=== PATIENT | male | born 1965 | race African-American/Black ===

== ENCOUNTER 2019-04-18 11:32 | Inpatient (IN) | payer MEDICARE, MEDICAID ==
[~2019-04-18] VITALS: Ht 180.3 cm; Wt 119.3 kg
[2019-04-18 12:18] LABS: BASOPHILS % 0.7 % (0.0-2.0); EOSINOPHILS % 3.6 % (0.0-5.0); HEMATOCRIT. 39.4 % (42.0-52.0); HEMOGLOBIN. 13.5 g/dL (14.0-18.0); LYMPHOCYTES % 18.7 % (20.0-50.0); MEAN CORPUSCULAR HEMOGLOBIN 30.1 pg (28.0-32.0); MEAN PLATELET VOLUME 7.7 fl (7.4-10.4); MONOCYTES % 6.9 % (2.0-8.0); NEUTROPHILS % 70.1 % (40.0-76.0); PLATELET 309 x1000/uL (130-400); RED BLOOD CELL COUNT 4.47 mill/uL (4.7-6.1); RED CELL DISTRIBUTION WIDTH 16.2 % (11.6-14.6)
[2019-04-18 12:23] LABS: CHLORIDE 109 mEq/L (98-107)
[2019-04-18] MEDS ORDERED: NITROGLYCERIN 0.4MG TABLET SL SL PRN (12:45)
[2019-04-18] MEDS ORDERED: ASPIRIN 81MG TABLET PO ONE (12:45)
[2019-04-18] MEDS ORDERED: ENOXAPARIN 100MG/ML SYR SUBCUT ONE (12:45)
[2019-04-18] MEDS ORDERED: MORPHINE SULFATE 10 MG/ML CPJ IM ONE (14:30)
[2019-04-18 16:48] VITALS: BP 148/99
[2019-04-18 17:10] VITALS: BP 148/99
[2019-04-18] MEDS ORDERED: CLON0.1T PO (17:18)
[2019-04-18] MEDS ORDERED: ATOR80TA PO (17:18)
[2019-04-18] MEDS ORDERED: BUPR300T52 PO (17:18)
[2019-04-18] MEDS ORDERED: AMLO5TAB4 PO (17:18)
[2019-04-18] MEDS ORDERED: PROT40 PO (17:18)
[2019-04-18 18:04] VITALS: BP 183/117
[2019-04-18] MEDS ORDERED: ACETAMINOPHEN 325MG TABLET PO PRN (18:30)
[2019-04-18] MEDS ORDERED: MORPHINE SULFATE 2 MG/ML CPJ (NOT FOR IM USE) IV PRN (18:30)
[2019-04-18] MEDS ORDERED: HYDROCODONE/ACETAMINOPHEN 5/325MG TABLET PO PRN (18:30)
[2019-04-18] MEDS ORDERED: PANTOPRAZOLE 40MG DR TABLET PO ONE (18:45)
[2019-04-18] MEDS ORDERED: CLONIDINE 0.1MG TABLET PO NR (18:45)
[2019-04-18 20:00] VITALS: BP 142/75
[2019-04-18] MEDS: ATORVASTATIN CALCIUM 40MG TABLET PO SCH (21:25)
[2019-04-18 22:00] VITALS: BP 141/83
[2019-04-18] MEDS: CLONIDINE 0.1MG TABLET PO SCH (22:49)
[2019-04-19] VITALS (12 sets, daily range): BP systolic 111–162; BP diastolic 57–92
[2019-04-19] MEDS: CLONIDINE 0.1MG TABLET PO SCH ×3 (05:58→21:13)
[2019-04-19 06:59] LABS: HEMOGLOBIN 12.2 g/dL (14.0-18.0); MEAN CORPUSCULAR HEMOGLOBIN 30.3 pg (28.0-32.0); MEAN CORPUSCULAR VOLUME 87.3 fL (80.0-94.0); PLATELET 256 x1000/uL (130-400); RED BLOOD CELL COUNT 4.01 mill/uL (4.7-6.1); RED CELL DISTRIBUTION WIDTH 16.2 % (11.6-14.6)
[2019-04-19 07:19] LABS: CHLORIDE 106 mEq/L (98-107)
[2019-04-19] MEDS: BUPROPION HCL 150MG TABLET XL 24HR PO SCH (08:04)
[2019-04-19] MEDS: PANTOPRAZOLE 40MG DR TABLET PO SCH (08:04)
[2019-04-19] MEDS: ASPIRIN 81MG TABLET PO SCH (08:04)
[2019-04-19] MEDS: AMLODIPINE 5MG TABLET PO SCH (08:08)
[2019-04-19] MEDS: ENOXAPARIN 30MG/0.3ML SYR SUBCUT SCH ×2 (08:08→21:00)
[2019-04-19] MEDS ORDERED: ENOXAPARIN 40MG/0.4ML SYR SUBCUT SCH (09:00)
[2019-04-19 13:17] LABS: METHADONE URINE SCREEN NEGATIVE (NEGATIVE)
[2019-04-19 13:18] LABS: *AMPHETAMINES SCREEN URINE NEGATIVE (NEGATIVE); *BARBITURATES SCREEN URINE NEGATIVE (NEGATIVE); *BENZODIAZEPINES SCREEN URINE NEGATIVE (NEGATIVE); *COCAINE SCREEN URINE NEGATIVE (NEGATIVE); CANNABINOID URINE SCREEN NEGATIVE (NEGATIVE); OPIATES URINE SCREEN PRESUMTIVE POSITIVE (NEGATIVE); PHENCYCLIDINE URINE SCREEN NEGATIVE (NEGATIVE)
[2019-04-19] MEDS: ATORVASTATIN CALCIUM 40MG TABLET PO SCH (21:13)
[2019-04-20] VITALS (12 sets, daily range): BP systolic 99–139; BP diastolic 60–94
[2019-04-20] MEDS: CLONIDINE 0.1MG TABLET PO SCH ×3 (06:02→21:37)
[2019-04-20] MEDS: BUPROPION HCL 150MG TABLET XL 24HR PO SCH (08:25)
[2019-04-20] MEDS: ASPIRIN 81MG TABLET PO SCH (08:25)
[2019-04-20] MEDS: ENOXAPARIN 30MG/0.3ML SYR SUBCUT SCH ×2 (08:25→21:00)
[2019-04-20] MEDS: AMLODIPINE 5MG TABLET PO SCH (08:25)
[2019-04-20] MEDS: PANTOPRAZOLE 40MG DR TABLET PO SCH (08:25)
[2019-04-20] MEDS ORDERED: REGADENOSON 0.4 MG/5 ML IV NR (10:15)
[2019-04-20] MEDS: ATORVASTATIN CALCIUM 40MG TABLET PO SCH (21:37)
[2019-04-21] VITALS: BP 129/76
[2019-04-21 02:04] VITALS: BP 133/78
[2019-04-21 04:21] VITALS: BP 119/72
[2019-04-21 05:57] VITALS: BP 130/84
[2019-04-21] MEDS: CLONIDINE 0.1MG TABLET PO SCH (05:57)
[2019-04-21 07:03] VITALS: BP 130/79
[2019-04-21] MEDS ORDERED: FAMOTIDINE 20MG TABLET PO SCH (09:00)
== END 2019-04-21 07:42 | disposition left against medical advice (07) | DRG 305 ==
LOC: ER 11:32 → 3WST 14:27 → ENRESERV 15:24
PROVIDERS: ADMIT Internal Medicine; ATTEND Internal Medicine
DX: I11.9 Hypertensive heart disease without heart failure (principal); I20.0 Unstable angina; I10 Essential (primary) hypertension; E78.5 Hyperlipidemia, unspecified; F32.9 Major depressive disorder, single episode, unspecified; K21.9 Gastro-esophageal reflux disease without esophagitis; Z53.21 Procedure and treatment not carried out due to patient leaving prior to being seen by health care provider
CPT/HCPCS: 36415; 71045; 80048; 80061; 80305; 83880; 84484; 85027; 93005; 93306; 96374; 99285; J1650; J2270